=== PATIENT | female | born 1965 | race Caucasian/White ===

== ENCOUNTER → 2017-03-13 | Outpatient (CLI) | payer OTHER ==
[~2017-03-13] MED LIST: AMOX1TAB64 PO; APIX2.5T PO; CHOL10002 PO; FAMO10TA31 PO; LEVO50TA5 PO; OXYB5TAB7 PO; OXYC-302 PO; RANI150C PO; WARF7.5T6 PO; [UNRECOGNIZED DRUG - OTHER] PO; [UNRECOGNIZED DRUG - OTHER] PO
== END | disposition home or self-care (01) ==
LOC: LAB 16:44
PROVIDERS: ATTEND Internal Medicine Hematology & Oncology
DX: Z86.718 Personal history of other venous thrombosis and embolism (principal); Z79.01 Long term (current) use of anticoagulants; D69.8 Other specified hemorrhagic conditions; D25.9 Leiomyoma of uterus, unspecified; I26.99 Other pulmonary embolism without acute cor pulmonale; M79.89 Other specified soft tissue disorders
CPT/HCPCS: 36415; 85610; 85730

== ENCOUNTER → 2017-12-18 | Outpatient (CLI) | payer OTHER ==
[~2017-12-18] MED LIST changes: +OMNIPAQUE 350 MG/ML, 75ML BOTTLE ONE
== END | disposition home or self-care (01) ==
LOC: CFH 10:27
PROVIDERS: ATTEND Internal Medicine
DX: R91.8 Other nonspecific abnormal finding of lung field (principal)
CPT/HCPCS: 71260; Q9967

== ENCOUNTER → 2018-08-17 | Outpatient (CLI) | payer OTHER ==
[~2018-08-17] MED LIST changes: -OMNIPAQUE 350 MG/ML, 75ML BOTTLE ONE; +REGADENOSON 0.4 MG/5 ML SYRINGE ONE; +WARF7.5T46 PO; -WARF7.5T6 PO
== END | disposition home or self-care (01) ==
LOC: CFH 06:53
PROVIDERS: ATTEND Internal Medicine Cardiovascular Disease
DX: R06.02 Shortness of breath (principal); R07.9 Chest pain, unspecified
CPT/HCPCS: 0399T; 78452; 93017; 93306; A9502; J2785

== ENCOUNTER 2020-02-21 22:31 | Inpatient (IN) | payer OTHER ==
[~2020-02-21] VITALS: Ht 154.9 cm; Wt 100.8 kg
[~2020-02-21 22:31] MED LIST changes: +OXYB5TAB10 PO; -OXYB5TAB7 PO; -REGADENOSON 0.4 MG/5 ML SYRINGE ONE
[2020-02-21] MEDS ORDERED: HYDROmorphone 1 MG/ML, 1ML INJ ONE (22:46)
[2020-02-21] MEDS ORDERED: CYAN250013 PO (22:50)
[2020-02-21] MEDS ORDERED: TIZA2CAP PO (22:50)
[2020-02-21] MEDS ORDERED: MELA1TAB19 SL (22:50)
[2020-02-21] MEDS ORDERED: TUMERIC (22:50)
[2020-02-21] MEDS ORDERED: HYDROmorphone 1 MG/ML, 1ML INJ IVPush PRN (23:00)
[2020-02-21] MEDS ORDERED: SODIUM CHLORIDE FLUSH 10ML SYR IVF ONE (23:00)
--- NOTE | 2020-02-21 23:02 | NUR ---
IV SITE STARTED, PT MEDICATED PER JAN. MONITORS APPLIED, SIDERAIL SUP X2, CALL LIGHT WITHIN REACH
[2020-02-21 23:06] LABS: BASOPHILS # (AUTO) 0.08 x10^3/uL (0-0.1); BASOPHILS % (AUTO) 1 % (0-1); EOSINOPHILS # (AUTO) 0.19 x10^3/uL (0-0.4); EOSINOPHILS % (AUTO) 1 % (1-7); LYMPHOCYTES # (AUTO) 2.37 x10^3/uL (1-3.4); LYMPHOCYTES % (AUTO) 15 % (22-44); MD NO; MEAN CORPUSCULAR HEMOGLOBIN 28.4 pg (27.0-34.8); MEAN CORPUSCULAR VOLUME 86.2 fL (80-100); MEAN PLATELET VOLUME 7.8 fL (7.4-10.4); MONOCYTES # (AUTO) 0.88 x10^3/uL (0.2-0.8); MONOCYTES % (AUTO) 5 % (2-9); NEUTROPHILS # (AUTO) 12.86 x10^3/uL (1.8-6.8); NEUTROPHILS % (AUTO) 79 % (42-75); PLATELET COUNT 148 x10^3/uL (130-400); RED BLOOD COUNT 4.41 x10^6/uL (3.82-5.3); RED CELL DISTRIBUTION WIDTH 15.1 % (9.6-15.2)
[2020-02-21 23:16] LABS: ALANINE AMINOTRANSFERASE 12 U/L (12-78); ALBUMIN 3.7 g/dL (3.4-5.0); ANION GAP 9 mmol/L (5-15); CALCIUM 9.3 mg/dL (8.5-10.1); CHLORIDE 106 mmol/L (98-107)
[2020-02-21 23:19] LABS: ALKALINE PHOSPHATASE 73 U/L (45-117); BILIRUBIN,TOTAL 0.5 mg/dL (0.2-1.0); TOTAL PROTEIN 7.6 g/dL (6.4-8.2)
[2020-02-21] MEDS ORDERED: HEPARIN 25,000 UNITS/250ML PMX 250 ML ONE (23:39)
--- NOTE | 2020-02-21 23:39 | NUR ---
PT TO CT
[2020-02-21] MEDS ORDERED: HEPARIN 5,000 UNITS/ML, 1ML ONE (23:40)
[2020-02-21] MEDS ORDERED: HEPARIN 5,000 UNITS/ML, 1ML IV ONE (23:45)
[2020-02-21 23:52] LABS: INTERNATIONAL NORMALIZED RATIO 0.99 (0.93-1.1); PROTHROMBIN TIME 10.5 Seconds (9.6-11.5)
[2020-02-22] MEDS: HEPARIN 25,000 UNITS/250ML PMX 250 ML IV PRN (00:08)
[2020-02-22] MEDS ORDERED: OMNIPAQUE 350 MG/ML, 100ML BOTTLE ONE (00:29)
--- NOTE | 2020-02-22 00:32 | NUR ---
BREAK RN: DR NIEVES AT BEDSIDE TO EVAL FOR ADMISSION. DISCUSSED PT'S PAIN WITH ERP AND OK TO GIVE REPEAT 1 MG DILAUDID IV.
[2020-02-22] MEDS ORDERED: HYDROmorphone 1 MG/ML, 1ML INJ ONE (00:34)
[2020-02-22] MEDS ORDERED: HYDROmorphone 1 MG/ML, 1ML INJ IV ONE (01:00)
[2020-02-22] MEDS ORDERED: ACETAMINOPHEN 325 MG TABLET PO PRN (01:00)
[2020-02-22] MEDS ORDERED: hydrALAzine 20 MG/ML, 1ML IVPush PRN (01:00)
[2020-02-22] MEDS ORDERED: ONDANSETRON 2MG/ML, 2ML IVPush PRN (01:00)
[2020-02-22 01:06] VITALS: BP 125/87
[2020-02-22 06:52] VITALS: BP 109/72
[2020-02-22] MEDS: HEPARIN 5,000 UNITS/ML, 1ML IV PRN ×3 (07:24→22:09)
[2020-02-22 08:56] LABS: INTERNATIONAL NORMALIZED RATIO 0.98 (0.93-1.1); PROTHROMBIN TIME 10.4 Seconds (9.6-11.5)
[2020-02-22] MEDS: AMOXICILLIN/CLAV 875-125MG TABLET PO SCH ×2 (11:42→21:18)
[2020-02-22] MEDS: HYDROcodone/APAP 5/325 TABLET PO PRN ×2 (11:46→19:12)
[2020-02-22] MEDS: WARFARIN MODERAT DOSE PROTOCOL XX SCH (12:00)
[2020-02-22 13:42] VITALS: BP 100/68
[2020-02-22] MEDS ORDERED: WARFARIN 7.5 MG TABLET PO-COUM ONE (18:00)
[2020-02-22 18:26] VITALS: BP 137/83
[2020-02-23] MEDS: HYDROcodone/APAP 5/325 TABLET PO PRN ×4 (00:12→20:38)
[2020-02-23] MEDS: HEPARIN 25,000 UNITS/250ML PMX 250 ML IV PRN ×2 (00:19→16:58)
[2020-02-23 02:36] VITALS: BP 106/85
[2020-02-23 04:40] LABS: MEAN CORPUSCULAR HEMOGLOBIN 28.5 pg (27.0-34.8); MEAN CORPUSCULAR HGB CONC 32.7 g/dL (32.4-35.8); MEAN CORPUSCULAR VOLUME 87.1 fL (80-100); MEAN PLATELET VOLUME 7.9 fL (7.4-10.4); PLATELET COUNT 153 x10^3/uL (130-400); RED BLOOD COUNT 4.35 x10^6/uL (3.82-5.3); RED CELL DISTRIBUTION WIDTH 15.1 % (9.6-15.2)
[2020-02-23 04:49] LABS: INTERNATIONAL NORMALIZED RATIO 0.96 (0.93-1.1); PROTHROMBIN TIME 10.2 Seconds (9.6-11.5)
[2020-02-23 04:52] LABS: ANION GAP 8 mmol/L (5-15); CALCIUM 8.8 mg/dL (8.5-10.1); CHLORIDE 106 mmol/L (98-107); CREATININE 0.94 mg/dL (0.55-1.02)
[2020-02-23 04:53] LABS: BASOPHILS # (AUTO) 0.08 x10^3/uL (0-0.1); BASOPHILS % (AUTO) 1 % (0-1); EOSINOPHILS # (AUTO) 0.32 x10^3/uL (0-0.4); EOSINOPHILS % (AUTO) 2 % (1-7); LYMPHOCYTES # (AUTO) 2.77 x10^3/uL (1-3.4); LYMPHOCYTES % (AUTO) 18 % (22-44); MD SCAN; MONOCYTES # (AUTO) 0.98 x10^3/uL (0.2-0.8); MONOCYTES % (AUTO) 7 % (2-9); NEUTROPHILS # (AUTO) 10.99 x10^3/uL (1.8-6.8); NEUTROPHILS % (AUTO) 73 % (42-75)
[2020-02-23] MEDS: HEPARIN 5,000 UNITS/ML, 1ML IV PRN ×2 (06:14→18:36)
[2020-02-23 07:44] VITALS: BP 111/74
[2020-02-23] MEDS: AMOXICILLIN/CLAV 875-125MG TABLET PO SCH (08:33)
[2020-02-23] MEDS: FUROSEMIDE 20 MG TABLET PO SCH (11:18)
[2020-02-23] MEDS: AMPICILLIN/SULBACTAM 1,500 MG in SODIUM CHLORIDE 0.9% 50 ML IV SCH ×3 (11:18→23:05)
[2020-02-23] MEDS: WARFARIN MODERAT DOSE PROTOCOL XX SCH (12:00)
[2020-02-23 13:26] VITALS: BP 109/70
[2020-02-23] MEDS ORDERED: GADOTERATE 10 MMOL/20 ML SYR ONE (14:48)
[2020-02-23] MEDS ORDERED: WARFARIN 7.5 MG TABLET PO-COUM ONE (18:00)
[2020-02-23 19:13] VITALS: BP 101/69
[2020-02-24 00:37] VITALS: BP 118/78
[2020-02-24] MEDS: AMPICILLIN/SULBACTAM 1,500 MG in SODIUM CHLORIDE 0.9% 50 ML IV SCH ×3 (04:48→17:50)
[2020-02-24 06:37] LABS: BASOPHILS # (AUTO) 0.05 x10^3/uL (0-0.1); BASOPHILS % (AUTO) 0 % (0-1); EOSINOPHILS # (AUTO) 0.37 x10^3/uL (0-0.4); EOSINOPHILS % (AUTO) 3 % (1-7); LYMPHOCYTES # (AUTO) 1.96 x10^3/uL (1-3.4); LYMPHOCYTES % (AUTO) 14 % (22-44); MD NO; MEAN CORPUSCULAR HEMOGLOBIN 28.4 pg (27.0-34.8); MEAN CORPUSCULAR HGB CONC 32.8 g/dL (32.4-35.8); MEAN CORPUSCULAR VOLUME 86.5 fL (80-100); MEAN PLATELET VOLUME 7.7 fL (7.4-10.4); MONOCYTES # (AUTO) 0.89 x10^3/uL (0.2-0.8); MONOCYTES % (AUTO) 7 % (2-9); NEUTROPHILS # (AUTO) 10.33 x10^3/uL (1.8-6.8); NEUTROPHILS % (AUTO) 76 % (42-75); PLATELET COUNT 173 x10^3/uL (130-400); RED BLOOD COUNT 4.23 x10^6/uL (3.82-5.3); RED CELL DISTRIBUTION WIDTH 15.3 % (9.6-15.2)
[2020-02-24 06:43] VITALS: BP 108/79
[2020-02-24 06:43] LABS: ALBUMIN 2.8 g/dL (3.4-5.0); ANION GAP 8 mmol/L (5-15); CALCIUM 8.7 mg/dL (8.5-10.1); CHLORIDE 108 mmol/L (98-107)
[2020-02-24 06:44] LABS: INTERNATIONAL NORMALIZED RATIO 1.04 (0.93-1.1)
[2020-02-24 06:46] LABS: ALANINE AMINOTRANSFERASE 9 U/L (12-78); ALKALINE PHOSPHATASE 64 U/L (45-117); BILIRUBIN,TOTAL 0.5 mg/dL (0.2-1.0); CREATININE 0.83 mg/dL (0.55-1.02); TOTAL PROTEIN 6.8 g/dL (6.4-8.2)
[2020-02-24] MEDS ORDERED: MAGNESIUM CITRATE 300ML ORAL SOL PO ONE (08:00)
[2020-02-24] MEDS ORDERED: BISACODYL 10 MG SUPP PR PRN (08:00)
[2020-02-24] MEDS: FUROSEMIDE 20 MG TABLET PO SCH (08:16)
[2020-02-24] MEDS: HYDROcodone/APAP 5/325 TABLET PO PRN ×3 (08:17→21:20)
[2020-02-24] MEDS: HEPARIN 5,000 UNITS/ML, 1ML IV PRN ×2 (08:19→21:51)
[2020-02-24] MEDS: HEPARIN 25,000 UNITS/250ML PMX 250 ML IV PRN (09:32)
[2020-02-24] MEDS: WARFARIN MODERAT DOSE PROTOCOL XX SCH (12:00)
[2020-02-24 15:19] VITALS: BP 120/89
[2020-02-24] MEDS ORDERED: WARFARIN 7.5 MG TABLET PO-COUM ONE (18:00)
[2020-02-24 19:19] VITALS: BP 90/64
[2020-02-25] MEDS: AMPICILLIN/SULBACTAM 1,500 MG in SODIUM CHLORIDE 0.9% 50 ML IV SCH ×5 (00:19→23:56)
[2020-02-25] MEDS: HEPARIN 25,000 UNITS/250ML PMX 250 ML IV PRN ×2 (01:07→15:45)
[2020-02-25 02:21] VITALS: BP 100/67
[2020-02-25 04:31] LABS: BASOPHILS # (AUTO) 0.08 x10^3/uL (0-0.1); BASOPHILS % (AUTO) 1 % (0-1); EOSINOPHILS # (AUTO) 0.51 x10^3/uL (0-0.4); EOSINOPHILS % (AUTO) 5 % (1-7); LYMPHOCYTES # (AUTO) 2.14 x10^3/uL (1-3.4); LYMPHOCYTES % (AUTO) 19 % (22-44); MD NO; MEAN CORPUSCULAR HEMOGLOBIN 28.4 pg (27.0-34.8); MEAN CORPUSCULAR HGB CONC 32.9 g/dL (32.4-35.8); MEAN CORPUSCULAR VOLUME 86.3 fL (80-100); MEAN PLATELET VOLUME 7.7 fL (7.4-10.4); MONOCYTES # (AUTO) 0.78 x10^3/uL (0.2-0.8); MONOCYTES % (AUTO) 7 % (2-9); NEUTROPHILS # (AUTO) 7.53 x10^3/uL (1.8-6.8); NEUTROPHILS % (AUTO) 68 % (42-75); PLATELET COUNT 162 x10^3/uL (130-400); RED BLOOD COUNT 3.98 x10^6/uL (3.82-5.3); RED CELL DISTRIBUTION WIDTH 15.5 % (9.6-15.2)
[2020-02-25 04:40] LABS: INTERNATIONAL NORMALIZED RATIO 1.2 (0.93-1.1); PROTHROMBIN TIME 12.7 Seconds (9.6-11.5)
[2020-02-25 04:45] LABS: ALBUMIN 2.8 g/dL (3.4-5.0); ANION GAP 6 mmol/L (5-15); CALCIUM 8.5 mg/dL (8.5-10.1); CHLORIDE 108 mmol/L (98-107)
[2020-02-25 04:48] LABS: ALANINE AMINOTRANSFERASE 11 U/L (12-78); ALKALINE PHOSPHATASE 60 U/L (45-117); BILIRUBIN,TOTAL 0.4 mg/dL (0.2-1.0); CREATININE 0.87 mg/dL (0.55-1.02); TOTAL PROTEIN 6.7 g/dL (6.4-8.2)
[2020-02-25 08:15] VITALS: BP 139/92
[2020-02-25] MEDS: POTASSIUM CHLORIDE 20 MEQ TAB.ER.PRT PO SCH (08:19)
[2020-02-25] MEDS: FUROSEMIDE 20 MG TABLET PO SCH (08:20)
[2020-02-25] MEDS: DOCUSATE 100 MG CAPSULE PO SCH ×2 (08:20→21:00)
[2020-02-25] MEDS: HYDROcodone/APAP 5/325 TABLET PO PRN ×3 (10:30→22:41)
[2020-02-25] MEDS: WARFARIN MODERAT DOSE PROTOCOL XX SCH (12:00)
[2020-02-25 13:40] VITALS: BP 136/90
[2020-02-25] MEDS ORDERED: WARFARIN 10 MG TABLET PO-COUM ONE (18:00)
[2020-02-25 20:42] VITALS: BP 102/70
[2020-02-25] MEDS: MAGNESIUM HYDROXIDE 8%, 30ML UDC PO SCH (21:00)
[2020-02-26 00:43] VITALS: BP 118/80
[2020-02-26] MEDS: HYDROcodone/APAP 5/325 TABLET PO PRN ×4 (04:23→21:12)
[2020-02-26] MEDS: AMPICILLIN/SULBACTAM 1,500 MG in SODIUM CHLORIDE 0.9% 50 ML IV SCH ×4 (05:56→23:39)
[2020-02-26 06:38] LABS: INTERNATIONAL NORMALIZED RATIO 1.58 (0.93-1.1); PROTHROMBIN TIME 16.8 Seconds (9.6-11.5)
[2020-02-26 06:42] LABS: CALCIUM 8.7 mg/dL (8.5-10.1); CHLORIDE 109 mmol/L (98-107)
[2020-02-26 06:49] LABS: ALANINE AMINOTRANSFERASE 12 U/L (12-78); ALBUMIN 2.7 g/dL (3.4-5.0); ALKALINE PHOSPHATASE 56 U/L (45-117); ANION GAP 8 mmol/L (5-15); BILIRUBIN,TOTAL 0.3 mg/dL (0.2-1.0); CREATININE 0.89 mg/dL (0.55-1.02); TOTAL PROTEIN 6.5 g/dL (6.4-8.2)
[2020-02-26 06:52] LABS: BASOPHILS # (AUTO) 0.04 x10^3/uL (0-0.1); BASOPHILS % (AUTO) 1 % (0-1); EOSINOPHILS # (AUTO) 0.51 x10^3/uL (0-0.4); EOSINOPHILS % (AUTO) 6 % (1-7); LYMPHOCYTES # (AUTO) 1.92 x10^3/uL (1-3.4); LYMPHOCYTES % (AUTO) 22 % (22-44); MD NO; MEAN CORPUSCULAR HEMOGLOBIN 28.9 pg (27.0-34.8); MEAN CORPUSCULAR HGB CONC 33.3 g/dL (32.4-35.8); MEAN CORPUSCULAR VOLUME 86.7 fL (80-100); MEAN PLATELET VOLUME 7.8 fL (7.4-10.4); MONOCYTES # (AUTO) 0.67 x10^3/uL (0.2-0.8); MONOCYTES % (AUTO) 8 % (2-9); NEUTROPHILS # (AUTO) 5.69 x10^3/uL (1.8-6.8); NEUTROPHILS % (AUTO) 64 % (42-75); PLATELET COUNT 152 x10^3/uL (130-400); RED BLOOD COUNT 3.97 x10^6/uL (3.82-5.3); RED CELL DISTRIBUTION WIDTH 15.1 % (9.6-15.2)
[2020-02-26] MEDS: FUROSEMIDE 20 MG TABLET PO SCH ×2 (07:41→21:12)
[2020-02-26] MEDS: POTASSIUM CHLORIDE 20 MEQ TAB.ER.PRT PO SCH (07:41)
[2020-02-26] MEDS: DOCUSATE 100 MG CAPSULE PO SCH ×3 (07:41→21:00)
[2020-02-26] MEDS: HEPARIN 25,000 UNITS/250ML PMX 250 ML IV PRN ×2 (07:43→23:38)
[2020-02-26 07:55] VITALS: BP 121/89
[2020-02-26] MEDS: WARFARIN MODERAT DOSE PROTOCOL XX SCH (12:00)
[2020-02-26 14:56] VITALS: BP 108/74
[2020-02-26] MEDS ORDERED: WARFARIN 10 MG TABLET PO-COUM ONE (18:00)
[2020-02-26 20:53] VITALS: BP 116/64
[2020-02-26] MEDS: MAGNESIUM HYDROXIDE 8%, 30ML UDC PO SCH (21:00)
[2020-02-27 01:59] VITALS: BP 122/83
[2020-02-27 05:46] LABS: INTERNATIONAL NORMALIZED RATIO 1.72 (0.93-1.1); PROTHROMBIN TIME 18.3 Seconds (9.6-11.5)
[2020-02-27] MEDS: AMPICILLIN/SULBACTAM 1,500 MG in SODIUM CHLORIDE 0.9% 50 ML IV SCH ×4 (06:00→23:34)
[2020-02-27] MEDS: FUROSEMIDE 20 MG TABLET PO SCH ×2 (08:11→21:05)
[2020-02-27] MEDS: DOCUSATE 100 MG CAPSULE PO SCH ×2 (08:11→21:00)
[2020-02-27] MEDS: POTASSIUM CHLORIDE 20 MEQ TAB.ER.PRT PO SCH (08:11)
[2020-02-27] MEDS: HYDROcodone/APAP 5/325 TABLET PO PRN ×3 (09:18→23:34)
[2020-02-27 09:51] VITALS: BP 107/74
[2020-02-27] MEDS: WARFARIN MODERAT DOSE PROTOCOL XX SCH (11:52)
[2020-02-27 14:18] VITALS: BP 117/80
[2020-02-27] MEDS: HEPARIN 25,000 UNITS/250ML PMX 250 ML IV PRN (15:09)
[2020-02-27] MEDS ORDERED: WARFARIN 10 MG TABLET PO-COUM ONE (18:00)
[2020-02-27 19:40] VITALS: BP 128/83
[2020-02-27] MEDS: MAGNESIUM HYDROXIDE 8%, 30ML UDC PO SCH (21:00)
[2020-02-28 01:50] VITALS: BP 129/94
[2020-02-28] MEDS: HEPARIN 25,000 UNITS/250ML PMX 250 ML IV PRN ×2 (04:27→20:25)
[2020-02-28] MEDS: HYDROcodone/APAP 5/325 TABLET PO PRN ×3 (04:32→20:31)
[2020-02-28] MEDS: AMPICILLIN/SULBACTAM 1,500 MG in SODIUM CHLORIDE 0.9% 50 ML IV SCH ×3 (05:27→18:11)
[2020-02-28 07:20] VITALS: BP 108/73
[2020-02-28 07:21] LABS: INTERNATIONAL NORMALIZED RATIO 2.32 (0.93-1.1)
[2020-02-28 07:26] LABS: PROTHROMBIN TIME 24.8 Seconds (9.6-11.5)
[2020-02-28] MEDS: POTASSIUM CHLORIDE 20 MEQ TAB.ER.PRT PO SCH (09:00)
[2020-02-28] MEDS: DOCUSATE 100 MG CAPSULE PO SCH ×2 (09:00→20:31)
[2020-02-28] MEDS: FUROSEMIDE 20 MG TABLET PO SCH ×2 (09:01→20:20)
[2020-02-28] MEDS: WARFARIN MODERAT DOSE PROTOCOL XX SCH (11:58)
[2020-02-28 13:05] VITALS: BP 110/75
[2020-02-28] MEDS ORDERED: WARFARIN 7.5 MG TABLET PO-COUM ONE (18:00)
[2020-02-28 19:14] VITALS: BP 122/76
[2020-02-28] MEDS: MAGNESIUM HYDROXIDE 8%, 30ML UDC PO SCH (20:31)
[2020-02-29] MEDS: AMPICILLIN/SULBACTAM 1,500 MG in SODIUM CHLORIDE 0.9% 50 ML IV SCH ×2 (00:04→05:38)
[2020-02-29 00:35] VITALS: BP 105/74
[2020-02-29 05:26] LABS: INTERNATIONAL NORMALIZED RATIO 2.64 (0.93-1.1); PROTHROMBIN TIME 28.3 Seconds (9.6-11.5)
[2020-02-29 07:33] VITALS: BP 110/73
[2020-02-29] MEDS: POTASSIUM CHLORIDE 20 MEQ TAB.ER.PRT PO SCH (08:20)
[2020-02-29] MEDS: FUROSEMIDE 20 MG TABLET PO SCH (08:20)
[2020-02-29] MEDS: HYDROcodone/APAP 5/325 TABLET PO PRN ×2 (08:20→08:23)
[2020-02-29] MEDS: DOCUSATE 100 MG CAPSULE PO SCH (08:21)
[2020-02-29] MEDS ORDERED: AMOXICILLIN/CLAV 875-125MG TABLET PO SCH (09:00)
[2020-02-29] MEDS ORDERED: ACET325T26 PO (10:04)
[2020-02-29] MEDS ORDERED: FURO20TA3 PO (10:04)
[2020-02-29] MEDS ORDERED: [UNRECOGNIZED DRUG - OTHER] XX (10:04)
[2020-02-29] MEDS ORDERED: POTA20TA6 PO (10:04)
[2020-02-29] MEDS ORDERED: AMOX1TAB12 PO (10:04)
[2020-02-29] MEDS: WARFARIN MODERAT DOSE PROTOCOL XX SCH (11:29)
[2020-02-29] MEDS ORDERED: WARF3TAB PO (11:41)
[2020-02-29] MEDS ORDERED: WARFARIN 5 MG TABLET PO-COUM ONE (18:00)
== END 2020-02-29 12:31 | disposition home or self-care (01) | DRG 299 ==
LOC: ED 02-22 00:19 → EDIP 02-22 00:51 → 3N 02-22 01:03
PROVIDERS: ADMIT Internal Medicine; ATTEND Internal Medicine
DX: I82.411 Acute embolism and thrombosis of right femoral vein (principal); N17.0 Acute kidney failure with tubular necrosis; L03.115 Cellulitis of right lower limb; I82.431 Acute embolism and thrombosis of right popliteal vein; I82.441 Acute embolism and thrombosis of right tibial vein; I82.811 Embolism and thrombosis of superficial veins of right lower extremity; K21.9 Gastro-esophageal reflux disease without esophagitis; M60.9 Myositis, unspecified; E66.01 Morbid (severe) obesity due to excess calories; M79.7 Fibromyalgia; K59.00 Constipation, unspecified; I10 Essential (primary) hypertension; Z86.711 Personal history of pulmonary embolism; Z90.710 Acquired absence of both cervix and uterus; Z87.891 Personal history of nicotine dependence; Z86.718 Personal history of other venous thrombosis and embolism; Z91.14 Patient's other noncompliance with medication regimen
CPT/HCPCS: 36415; 71275; 80048; 80053; 82550; 85025; 85520; 85610; 85730; 87040; 93005; 96374; G0378; J1170; J1644; J2405; Q9967; A9575; J0295